=== PATIENT | male | born 1965 | race African-American/Black ===

== ENCOUNTER 2020-11-17 09:32 | Inpatient (IN) | payer OTHER ==
[~2020-11-17] VITALS: Ht 172.7 cm; Wt 88.8 kg
[2020-11-17 10:36] LABS: BASO % 0.3 % (0.0-2.0); EOS # 0.1 (0.0-0.7); EOS % 0.8 % (0-4.0); GRAN # 5.5 (1.4-6.5); GRAN % 70.6 % (42.2-75.2); HEMATOCRIT 42.6 % (42.0-52.0); HEMOGLOBIN 12.7 g/dl (13.5-18.0); LYMPH # 1.7 (1.2-3.4); LYMPH % 21.6 % (20.0-51.0); MEAN CELL VOLUME 76 fl (80.0-100.0); MEAN CORPUSCULAR HEMOGLOBIN 23 pg (27.0-31.0); MEAN CORPUSCULAR HGB CONC 30 g/dl (33.0-37.0); MONO # 0.5 (0.1-0.6); MONO % 6.4 % (1.7-9.3); PLATELET COUNT 224 K/mm3 (130-400); RED BLOOD COUNT 5.61 M/mm3 (4.20-5.60); REDCELL DISTRIBUTION WIDTH-CV 18.4 % (11.5-14.5)
[2020-11-17 10:44] LABS: INR 3.8 (0.8-3.0); PROTHROMBIN TIME 43.2 SECONDS (9.7-12.8)
[2020-11-17 10:47] LABS: ALBUMIN 4.4 gm/dL (3.5-5.0); BILIRUBIN,TOTAL 0.5 mg/dL (0.0-1.0); CALCIUM 9.3 mg/dL (8.4-10.2); CREATININE, serum 1.17 (0.66-1.25); TOTAL PROTEIN 7.7 gm/dL (6.4-8.2)
[2020-11-17] MEDS ORDERED: FLOMAX 0.40.4 MG/CAP PO (12:29)
[2020-11-17] MEDS ORDERED: GLUCOPHAGE1000 MG PO (12:30)
[2020-11-17] MEDS ORDERED: PRILOSEC 20MG20 MG PO (12:30)
[2020-11-17] MEDS ORDERED: PRINIVIL40 MG PO (12:31)
[2020-11-17] MEDS ORDERED: LIPITOR 40MG TA40 MG PO (12:31)
[2020-11-17] MEDS ORDERED: VIAGRA100 M1 (12:32)
[2020-11-17] MEDS ORDERED: BETAPACE160 MG (12:32)
[2020-11-17] MEDS ORDERED: K-DUR20 MEQ PO (12:33)
[2020-11-17] MEDS ORDERED: LASIX 20MG TABL20 MG PO (12:33)
[2020-11-17] MEDS ORDERED: COUMADIN 2MG2 MG/TAB PO (12:34)
[2020-11-17] MEDS ORDERED: NATURAL MAGNES200 MG (12:35)
[2020-11-17] MEDS ORDERED: ASPIRIN 81M81 MG/TA2 PO (12:35)
[2020-11-17] MEDS ORDERED: EPA FISH OIL1 SGL PO (12:36)
[2020-11-17] MEDS ORDERED: NORVASC 5MG5 MG/TAB PO (12:37)
--- NOTE | 2020-11-17 14:00 | NUR ---
admitted to room 349 per WC from Emergency Department, awake and alert, assisted out of WC and into bed, full admission assessment and physical assessment completed, at bedside, denies needs at this time
[2020-11-17 14:05] VITALS: BP 109/68; PULSE 59; TEMP 97.7
--- NOTE | 2020-11-17 14:30 | NUR ---
spoke to Dr Gabriel and provded patient with water for now
[2020-11-17 15:00] VITALS: BP 109/68; PULSE 59; TEMP 97.7
--- NOTE | 2020-11-17 16:00 | NUR ---
resting in bed, Dr Gabriel has been in and seen patient and orders received, instructed on ordering something to eat and verbalizes understanding,
--- NOTE | 2020-11-17 17:30 | NUR ---
had supper and tolerated well, now resting in bed and visiting with his
--- NOTE | 2020-11-17 18:52 | NUR ---
bedside shift report given to KIP Santillan
--- NOTE | 2020-11-17 21:00 | NUR ---
PT INDEPENDENT IN ROOM. DENIES FURTHER RECTAL BLEEDING. OFFERED PAIN MEDS FOR CHRONIC LOW BACK PAIN, PT DENIES NEED FOR THIS. TAKES SCHEDULED HS MEDS WITHOUT PROBLEM. INSTRUCTED TO NOTIFY NURSING STAFF IF ANY BLOODY STOOLS, PT VERBALIZED UNDERSTANDING.
[2020-11-17 21:35] VITALS: BP 108/61; PULSE 59; TEMP 97.6
--- NOTE | 2020-11-18 04:00 | NUR ---
PT AWAKE, PLEASANT. DENIES NEEDS AT THIS TIME.
[2020-11-18 04:05] VITALS: BP 96/48; PULSE 59; TEMP 97.7
--- NOTE | 2020-11-18 05:35 | NUR ---
PT REQUESTING PAIN MEDS FOR BACK PAIN, NORCO 5 GIVEN WELL SCHEDULED PROTONIX.
[2020-11-18 06:58] LABS: INR 3.6 (0.8-3.0); PROTHROMBIN TIME 40.2 SECONDS (9.7-12.8)
[2020-11-18 06:59] LABS: BASO % 0.2 % (0.0-2.0); EOS # 0.1 (0.0-0.7); GRAN # 5.5 (1.4-6.5); HEMATOCRIT 38.8 % (42.0-52.0); HEMOGLOBIN 11.8 g/dl (13.5-18.0); LYMPH # 1.7 (1.2-3.4); LYMPH % 21.3 % (20.0-51.0); MEAN CELL VOLUME 76 fl (80.0-100.0); MEAN CORPUSCULAR HEMOGLOBIN 23 pg (27.0-31.0); MEAN CORPUSCULAR HGB CONC 30 g/dl (33.0-37.0); MEAN PLATELET VOLUME 11.4 fl (7.4-10.4); MONO # 0.7 (0.1-0.6); MONO % 8.3 % (1.7-9.3); PLATELET COUNT 211 K/mm3 (130-400); RED BLOOD COUNT 5.09 M/mm3 (4.20-5.60); REDCELL DISTRIBUTION WIDTH-CV 17.5 % (11.5-14.5)
[2020-11-18 07:09] LABS: CALCIUM 8.6 mg/dL (8.4-10.2); CREATININE, serum 1.19 (0.66-1.25); MAGNESIUM 2.1 mg/dL (1.6-2.3); POTASSIUM 4.5 mmol/L (3.4-5.0)
[2020-11-18 07:15] VITALS: BP 107/62; PULSE 60; TEMP 98.1
--- NOTE | 2020-11-18 09:52 | NUR ---
Pt assessment complete. Pt sitting up in the chair upon entry, he is A/O x4. His breathing is even and unlabored on RA. Pt reports low back pain 2/10, k pad in place. No other needs or concerns, updated patient with POC.
--- NOTE | 2020-11-18 10:17 | NUR ---
Initial visit; Patient thanked Final Rail Cutter for looking in on him and offering God's blessings.
[2020-11-18 11:23] VITALS: BP 121/67; PULSE 59; TEMP 99.1
--- NOTE | 2020-11-18 12:24 | NUR ---
Sw met with the pt who stated his preference to return home once medically stable. The lives at home with his , Alicia (ph# [phone]). The pt states he is independent on all ADLs and uses a glucmeter. The pt gets his medications from [facility] and has no troubles obtaining them. (valeri). The pt PCP is Daljit Brown PA. The pt states he has a DPOA-HC and but it is not in his chart. No other needs stated at this time. Sw to await further recommendations and follow up as needed. D/c: Home w/
--- NOTE | 2020-11-18 16:20 | NUR ---
Discharge paperwork and instructions reviewed with patient. All questions answered at this time. Discussed f/u appointments. IV to LAC dc'd catheter tip intact. Pt walked out of facility by staff member at this time.
== END 2020-11-18 16:20 | disposition home or self-care (01) | DRG 379 ==
LOC: COL.ER 09:32 → SURG 12:46
PROVIDERS: Nurse Practitioner Primary Care; ADMIT Internal Medicine
DX: K92.2 Gastrointestinal hemorrhage, unspecified (principal); K57.30 Diverticulosis of large intestine without perforation or abscess without bleeding; I10 Essential (primary) hypertension; D64.9 Anemia, unspecified; E11.9 Type 2 diabetes mellitus without complications; I25.10 Atherosclerotic heart disease of native coronary artery without angina pectoris; M54.5 Low back pain; M43.28 Fusion of spine, sacral and sacrococcygeal region; Z79.82 Long term (current) use of aspirin; Z79.01 Long term (current) use of anticoagulants; Z79.84 Long term (current) use of oral hypoglycemic drugs; Z95.0 Presence of cardiac pacemaker; Z95.2 Presence of prosthetic heart valve; Z95.1 Presence of aortocoronary bypass graft
CPT/HCPCS: 99222-AI; 99239; J2270; J2405; Q9967

== ENCOUNTER → 2020-11-19 | Outpatient (CLI) | payer OTHER ==
[~2020-11-19] MED LIST: ASPIRIN 81M81 MG/TA2 PO; BETAPACE160 MG; COUMADIN 2MG2 MG/TAB PO; COUMADIN 6MG6 MG/TAB PO; EPA FISH OIL1 SGL PO; FLOMAX 0.40.4 MG/CAP PO; GLUCOPHAGE1000 MG PO; K-DUR20 MEQ PO; LASIX 20MG TABL20 MG PO; LIPITOR 40MG TA40 MG PO; NATURAL MAGNES200 MG; NORVASC 5MG5 MG/TAB PO; PRILOSEC 20MG20 MG PO; PRINIVIL40 MG PO; VIAGRA100 M1
[2020-11-19 11:46] LABS: INR 1.8 (0.8-3.0); PROTHROMBIN TIME 19.8 SECONDS (9.7-12.8)
== END ==
LOC: COL.LAB 11:09
PROVIDERS: Internal Medicine
DX: D68.59 Other primary thrombophilia (principal); K62.5 Hemorrhage of anus and rectum

== ENCOUNTER 2020-11-20 09:21 | Day surgery (SDC) | payer OTHER ==
[~2020-11-20] VITALS: Ht 172.7 cm; Wt 89.8 kg
[~2020-11-20 09:21] MED LIST changes: -COUMADIN 6MG6 MG/TAB PO
[2020-11-20] MEDS ORDERED: COUMADIN 6MG6 MG/TAB PO (09:48)
[2020-11-20 09:59] VITALS: BP 132/90; PULSE 66; TEMP 98
[2020-11-20 11:40] VITALS: BP 100/61; PULSE 63; TEMP 97.2
--- NOTE | 2020-11-20 11:40 | NUR ---
PATIENT BROUGHT BACK TO [facility] VIA CART. AMBULATED TO CHAIR WITH STANDBY ASSIST AND CARE. PLACED ON MONITORS, VITAL SIGNS STABLE. AT BEDSIDE TO DRIVE PATIENT HOME. IV INFUSING INTO RIGHT HAND. STATES WOULD JUST LIKE ICE WATER AT THIS TIME. ALL SAFETY MAINTAINED. WILL MONITOR.
[2020-11-20 11:55] VITALS: BP 106/65; PULSE 60
--- NOTE | 2020-11-20 11:55 | NUR ---
VITAL SIGNS STABLE. TOLERATING WATER WITHOUT DIFFICULTY.
--- NOTE | 2020-11-20 12:00 | NUR ---
PER MD OBTAIN INR TO SEND TO MANUFACTURING INTERN. LAB AT BEDSIDE TO DRAW. DR. GRIMALDO AT BEDSIDE TO DISCUSS RESULTS OF COLONOSCOPY. WILL CONTINUE TO MONITOR.
[2020-11-20 12:10] VITALS: BP 104/68; PULSE 60
[2020-11-20 12:17] LABS: INR 1.4 (0.8-3.0); PROTHROMBIN TIME 15.6 SECONDS (9.7-12.8)
[2020-11-20 12:25] VITALS: BP 118/79; PULSE 60
--- NOTE | 2020-11-20 12:25 | NUR ---
PATIENT STATES HE FEELS GOOD AND READY TO GO HOME AT THIS TIME. VITAL SIGNS STABLE. 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 GRIMALDO. IV REMOVED, INTACT. PATIENT TO GET DRESSED AT THIS TIME.
--- NOTE | 2020-11-20 12:35 | NUR ---
DISCHARGE INSTRUCTIONS REVIEWED WITH PATIENT AND FAMILY MEMBERS. ALL QUESTIONS ANSWERED. 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 BROUGHT DOWN TO LOBBY VIA WHEEL CHAIR. TO DRIVE PATIENT HOME.
== END 2020-11-20 12:35 | disposition home or self-care (01) ==
LOC: SDCO 09:21
PROVIDERS: Internal Medicine Gastroenterology
DX: Z12.11 Encounter for screening for malignant neoplasm of colon (principal); K63.5 Polyp of colon; D12.5 Benign neoplasm of sigmoid colon; K57.30 Diverticulosis of large intestine without perforation or abscess without bleeding; K64.0 First degree hemorrhoids; K64.4 Residual hemorrhoidal skin tags; I10 Essential (primary) hypertension; E78.5 Hyperlipidemia, unspecified; K21.9 Gastro-esophageal reflux disease without esophagitis; E11.9 Type 2 diabetes mellitus without complications; Z87.891 Personal history of nicotine dependence; Z95.2 Presence of prosthetic heart valve; Z20.822 Contact with and (suspected) exposure to COVID-19; Z79.82 Long term (current) use of aspirin; Z79.84 Long term (current) use of oral hypoglycemic drugs; Z79.899 Other long term (current) drug therapy
CPT/HCPCS: J2704; J7030

== ENCOUNTER → 2021-11-14 | Outpatient (CLI) | payer OTHER ==
[~2021-11-14] MED LIST changes: +COUMADIN 6MG6 MG/TAB PO
== END ==
LOC: COL.RAD 10:27
DX: M19.011 Primary osteoarthritis, right shoulder (principal); Z95.0 Presence of cardiac pacemaker

== ENCOUNTER → 2021-12-10 | Outpatient (CLI) | payer OTHER | LOC: COL.RAD 12:42 | DX: M25.511 Pain in right shoulder (principal) | CPT/HCPCS: Q9967 ==

== ENCOUNTER 2021-12-19 08:41 | Outpatient (RCR) | payer OTHER | END 2021-12-24 | disposition home or self-care (01) | LOC: MKS.ESL.PT | DX: M25.511 Pain in right shoulder (principal) ==